=== PATIENT | male | born 1960 | race Caucasian/White ===

== ENCOUNTER 2022-10-03 07:29 | Day surgery (SDC) | payer BC ==
[~2022-10-03] VITALS: Ht 175.3 cm; Wt 74.6 kg
[~2022-10-03 07:29] MED LIST: ceFAZolin SODIUM 2 GM in D5W 100 ML IV ONE
[2022-10-03 09:09] VITALS: O2SAT 100
[2022-10-03] MEDS ORDERED: NS IRRIG SOLN 1000 ML IR ONE (09:30)
[2022-10-03] MEDS ORDERED: fentaNYL CITRATE/PF 100 MCG/2 ML AMP ONE (09:30)
[2022-10-03] MEDS ORDERED: DESFLURANE 15 MIN GAS INH ONE (09:30)
[2022-10-03] MEDS ORDERED: LR 1,000 ML IV.SOLN IV ONE (09:30)
[2022-10-03] MEDS ORDERED: LIDOCAINE 2%, 20 ML MDV ONE (09:30)
[2022-10-03] MEDS ORDERED: ONDANSETRON HCL 4 MG/2 ML VIAL ONE (09:30)
[2022-10-03] MEDS ORDERED: BUPIVACAINE /PF 0.25% 30 ML VIAL INJ ONE (09:30)
[2022-10-03] MEDS ORDERED: KETOROLAC TROMETHAMINE 30 MG VIAL ONE (09:30)
[2022-10-03] MEDS ORDERED: SUGAMMADEX SODIUM 200 MG/2 ML VIAL IV ONE (09:30)
[2022-10-03] MEDS ORDERED: PROPOFOL 200MG/ 20ML VIAL (DIPRIVAN) IV ONE (09:30)
[2022-10-03] MEDS ORDERED: DEXAMETHASONE SOD PHOSPHATE 4 MG/ML VIAL ONE (09:30)
[2022-10-03] MEDS ORDERED: ROCURONIUM BROMIDE 10 MG/ML (ZEMURON) ONE (09:30)
[2022-10-03] MEDS ORDERED: MIDAZOLAM HCL 2 MG/2 ML VIAL (VERSED) ONE (09:30)
[2022-10-03] MEDS ORDERED: HYDROmorphone 1 MG/ML INJ. CARTRIDGE IVP PRN ×2 (10:15)
[2022-10-03] MEDS ORDERED: hydrALAZINE HCL 20 MG/ML VIAL IVP PRN (10:15)
[2022-10-03] MEDS ORDERED: LR 1,000 ML IV SCH (10:15)
[2022-10-03] MEDS ORDERED: MEPERIDINE HCL/PF 25 MG/ML DISP.SYRIN IVP PRN (10:15)
[2022-10-03] MEDS ORDERED: METOCLOPRAMIDE HCL 10 MG/2 ML VIAL IVP PRN (10:15)
[2022-10-03] MEDS ORDERED: LABETALOL 100 MG/ 20ML VIAL IVP PRN (10:15)
[2022-10-03] MEDS ORDERED: ACETAMINOPHEN I.V. 1000 MG 100 ML IV ONE (10:27)
[2022-10-03] MEDS ORDERED: HYDROmorphone 1 MG/ML INJ. CARTRIDGE ONE (15:22)
[2022-10-03 16:03] VITALS: BP_SYST 129; PULSE 88; RESP 17
== END 2022-10-03 15:45 | disposition home or self-care (01) ==
LOC: SDS 07:29 → SMU 07:31 → SDS 15:45
PROVIDERS: ATTEND Surgery
DX: K40.20 Bilateral inguinal hernia, without obstruction or gangrene, not specified as recurrent (principal); K42.9 Umbilical hernia without obstruction or gangrene; I10 Essential (primary) hypertension; E78.5 Hyperlipidemia, unspecified; Z79.899 Other long term (current) drug therapy
CPT/HCPCS: 87081; 49650; 17999; 49591; 88302; 88305; 88313; 88341; 88342; J3490 ×2; J1100; J1885; J2001; J3465; J2405; J2704; J3010; J1170; J7060; J7120; C1727; C1781 ×2; J0131; S2900; 88304